=== PATIENT | female | born 1995 | race Hispanic/Latino ===

== ENCOUNTER → 2024-09-09 | Outpatient (CLI) | payer BC ==
[~2024-09-09] MED LIST: IOHEXOL 350 MG/ML 100ML INFUS..BTL IV ONE; metoPROLOL tartRATE 1 MG/ML 5ML VIAL IV ONE
== END | disposition home or self-care (01) ==
LOC: RAH 08:48
PROVIDERS: ATTEND Student in an Organized Health Care Education/Training Program
DX: R00.2 Palpitations (principal)
CPT/HCPCS: 75574; J3490; Q9967